=== PATIENT | male | born 1950 | race Caucasian/White ===

== ENCOUNTER 2022-07-31 09:37 | Emergency (ER) | payer MEDICARE | END 2022-07-31 11:40 | disposition home or self-care (01) | LOC: JP.ED 09:37 | DX: R05.3 Chronic cough (principal); T46.4X5A Adverse effect of angiotensin-converting-enzyme inhibitors, initial encounter; I10 Essential (primary) hypertension; Z88.0 Allergy status to penicillin; Z20.822 Contact with and (suspected) exposure to COVID-19 | CPT/HCPCS: 93005; 99283; U0002 ==

== ENCOUNTER 2022-12-08 10:58 | Emergency (ER) | payer MEDICARE | END 2022-12-08 13:07 | disposition home or self-care (01) | LOC: JP.ED 10:58 | DX: I82.412 Acute embolism and thrombosis of left femoral vein (principal); Z88.0 Allergy status to penicillin | CPT/HCPCS: 73610-26-LT; 73610-LT; 93971-26-LT; 93971-LT; 99284 ==